=== PATIENT | male | born 2000 | race Caucasian/White ===

== ENCOUNTER 2025-04-26 15:38 | Emergency (ER) | payer BC ==
[2025-04-26 16:29] VITALS: RESP 18; TEMP 98.5; O2SAT 98
[2025-04-26] MEDS ORDERED: XYLOCAINE 1% HCL 20 ML MDV ONE (16:31)
[2025-04-26] MEDS: XYLOCAINE 1% HCL 20 ML MDV IJ ONE (16:35)
--- NOTE | 2025-04-26 16:48 | ERPHSYRPT ---
- History of Present Illness Time Seen by Provider: 04/26/25 16:26 Source: patient Patient Subjective Stated Complaint: c/o laceration distal to left thumb Triage Nursing Assessment: Patient brought self to ED with c/o laceration distally to the left thumb on the dorsal side. Patient was cutting carpert and the knife slipped. patient has 3cm x 1.5 cm laceration, no bleeding present at this time, clean and dry at this time, afebrile, skin w/n/d, Full ROM, gait steady, doesn't appear to be in any distress at this time. Physician History: Patient has a laceration to his left dorsal hand. This is inferior to the left MCP of the joint. No signs of tendon injury. Patient states he is up-to-date on his tetanus shots. Patient states that he has no other injuries. He cut it on a carpet blade just prior to arrival. Allergies/Adverse Reactions: No Known Drug Allergies Allergy (Verified 04/26/25 16:18) Home Medications: No Reportable Medications [No Reported Medications] 04/26/25 [History] Hx Tetanus, Diphtheria Vaccination/Date Given: Yes Hx Influenza Vaccination/Date Given: No Hx Pneumococcal Vaccination/Date Given: No Travel Risk - International Travel Have you traveled outside of the country in past 3 weeks: No - Emerging Infectious Disease Are you exhibiting symptoms associated with any current EIDs: No - Past Medical History Pertinent Past Medical History: Yes Neurological History: No Pertinent History ENT History: No Pertinent History Cardiac History: No Pertinent History Respiratory History: No Pertinent History Endocrine Medical History: No Pertinent History Musculoskeletal History: Fractures GI Medical History: No Pertinent History History: No Pertinent History Psycho-Social History: No Pertinent History Male Reproductive Disorders: No Pertinent History Other Medical History: wrist hand fx - Past Surgical History Past Surgical History: No - Social History Smoking Status: Current every day smoker Exposure to second hand smoke: No Drug Use: none - Social Determinants of Health Will the patient participate in the screening: Yes Do you worry about a steady place to live?: No Do you have any problems with any of the following?: No known problems In the past 12 months,have you had to go without utilities?: No Transportation Issues: No Has anyone in your support network made you feel unsafe?: No Have you or anyone in your house had to go w/o enough food: No - Nursing Vital Signs Nursing Vital Signs: Initial Vital Signs Temperature 98.5 F 04/26/25 16:18 Pulse Rate 55 L 04/26/25 16:18 Respiratory Rate 18 04/26/25 16:18 Blood Pressure 130/74 04/26/25 16:18 O2 Sat by Pulse Oximetry 98 04/26/25 16:18 Pain Scale Pain Intensity 5 - Physical Exam SpO2: 98 Comments: 04/26/25 16:51 Review of Systems Constitutional: Negative for fever. HENT: Negative for congestion. Respiratory: Negative for shortness of breath. Cardiovascular: Negative for chest pain. Gastrointestinal: Negative for abdominal pain. Genitourinary: Negative for dysuria. Musculoskeletal: Negative for back pain. Skin: Negative for rash. Neurological: Negative for headaches. Psychiatric/Behavioral: Negative for behavioral problems. All other systems reviewed and are negative. Physical Exam Vitals signs and nursing note reviewed. Constitutional: Appearance: Patient is well-developed. HENT: Head: Normocephalic and atraumatic. Eyes: Conjunctiva/sclera: Conjunctivae normal. Neck: Musculoskeletal: Normal range of motion. Trachea: No tracheal deviation. Cardiovascular: Rate and Rhythm: Normal rate. Heart sounds normal. Pulmonary: Effort: Pulmonary effort is normal. No respiratory distress. Abdominal: Palpations: Abdomen is soft. Musculoskeletal: General: Left dorsal hand demonstrates laceration 5 cm x 1.5 cm. No obvious deformity, sensation intact, 2+ capillary refill. 5 out of 5 strength. Full range of motion without pain. Compartments are soft, nontender. Overlying skin shows no tenting, bruising, ecchymosis. No signs of foreign body tendons intact Skin: General: Skin is warm and dry. Neurological/ Psychiatric: Mental Status: Mental status, behavior, interaction with environment is appropriate for patient's age and condition Procedures - Laceration/Wound Repair Hand Time of Procedure: 16:52 Wound Location: Left Wound Length (cm): 5 Wound's Depth, Shape: linear Wound Explored: clean Irrigated: Yes Hibiclens Prep: Yes Anesthesia: 1% Lidocaine Volume Anesthetic (ccs): 10 Wound Repaired With: sutures Suture Size/Type: 3-0, prolene Number of Sutures: 5 Layer Closure?: No Sterile Dressing Applied?: Yes Splint Applied?: No Sling Applied?: No - Course Nursing assessment & vital signs reviewed: Yes Ordered Tests: Medication Summary Discontinued Medications Generic Name Dose Route Start Last Admin Trade Name Tha PRN Reason Stop Dose Admin Lidocaine HCl 10 ml 04/26/25 16:26 04/26/25 16:35 Lidocaine Hcl 1% 20 Ml Mdv 20 Ml Ml IJ 04/26/25 16:27 10 ml STAT ONE Administration Lidocaine HCl Confirm 04/26/25 16:31 Lidocaine Hcl 1% 20 Ml Mdv 20 Ml Ml Administered 04/26/25 16:32 Dose 10 ml .ROUTE .[employer] [facility] - Progress Progress: improved Progress Note: 04/26/25 16:52 patient's left hand laceration repaired. See procedure note for full details. He will need to be on light duty at work. Sutures out in 10 days. Return here sooner for any new or changing symptoms. - Departure Departure Disposition: Home Clinical Impression: Laceration of left hand Condition: Good Critical Care Time: No Referrals: SCREEN,DRUG [Primary Care Provider, UNKNOWN] - Follow up/PCP as directed Instructions: Laceration Repair With Stitches (DC) Additional Instructions: You should not go to work tonight. You should have no physical activity for 48 hours. You should remain on light duty for 10 days until sutures are removed. May return here for suture removal or follow-up with PCP.
[2025-04-26 16:57] VITALS: BP 125/65; PULSE 80
== END 2025-04-26 16:45 | disposition home or self-care (01) ==
LOC: ED 15:38
DX: S61.412A Laceration without foreign body of left hand, initial encounter (principal); W26.0XXA Contact with knife, initial encounter; Z72.0 Tobacco use